=== PATIENT | female | born 1945 | race Caucasian/White ===

== ENCOUNTER 2023-03-06 16:23 | Inpatient (IN) | payer MEDICARE, BC ==
[~2023-03-06] VITALS: Ht 165.1 cm; Wt 89.0 kg
[2023-03-06 17:56] LABS: Alanine Aminotransferase 24 U/L (7-40); Albumin 4.1 g/dL (3.2-4.8); Aspartate Aminotransferase 28 U/L (13-40); Bilirubin, Total 0.3 mg/dL (0.2-1.0); Chloride 98 mmol/L (98-107); Potassium 4.2 mmol/L (3.5-5.1); Sodium 131 mmol/L (136-145); Total Protein 6.6 g/dL (5.7-8.2)
[2023-03-06 17:58] LABS: Anion Gap 9.3 (5-15); Carbon Dioxide 23.7 mmol/L (20-30)
[2023-03-06 18:01] LABS: Basophils # (auto) 0.1 10 ^3/uL (0-0.2); Hemoglobin 11.9 g/dL (12.2-16.2); Lymphocytes # (auto) 1.5 10 ^3/uL (0.4-5.4); Nucleated Red Blood Cells % 0.1 %; White Blood Cell 10.1 10^3/uL (4.4-10.8)
[2023-03-06 18:02] LABS: Basophils % (auto) 0.7 % (0.0-2.0); Eosinophils # (auto) 0.4 10 ^3/uL (0-0.8); Eosinophils % (auto) 4.4 % (0.0-7.0); Hematocrit 36.6 % (36.0-46.0); Lymphocytes % (auto) 14.8 % (10.0-50.0); Mean Corpuscular Hemoglobin 28.3 pg (28.0-32.0); Mean Corpuscular Hgb Conc. 32.5 g/dL (32.0-36.0); Monocytes % (auto) 9.6 % (0.0-12.0); Neutrophils # (auto) 7.1 10 ^3/uL (1.6-8.6); Neutrophils % (auto) 70.5 % (37.0-80.0); Red Blood Cells 4.21 10^6/uL (4.0-5.20); Red Cell Distribution Width 16.8 % (11.8-14.3)
[2023-03-06 18:04] LABS: Alkaline Phosphatase 183 U/L (46-116); Blood Urea Nitrogen 36 mg/dL (9-23); Glucose 168 mg/dL (74-106)
[2023-03-06 19:05] LABS: Urine Bacteria NONE SEEN /hpf (None Seen); Urine Blood Negative /uL (Negative); Urine Clarity Clear (Clear); Urine Color Colorless (Yellow); Urine Hyaline Cast FEW /lpf (0 - 2); Urine Protein, UAD Negative (Negative); Urine Specific Gravity 1.014 (1.001-1.035); Urine Urobilinogen Normal (Negative); Urine WBC 1 /hpf (0 - 5)
[2023-03-06 19:25] VITALS: PULSE 94; RESP 17; O2SAT 96
[2023-03-06] MEDS ORDERED: DexAMETHasone SOD PHOS 10MG/1ML VIAL INJ IV ONE (20:00)
[2023-03-06] MEDS ORDERED: cefTRIAXone 1GM/50ML D5W 50 ML IV ONE (20:00)
[2023-03-06] MEDS ORDERED: AZITHROMYCIN 500MG/ 250ML 250 ML IV ONE (20:00)
[2023-03-06] MEDS ORDERED: ALBUTEROL SULF 2.5 MG/0.5ML(0.5%) NEB SOLN NEB ONE (20:00)
[2023-03-06] MEDS ORDERED: LACTATED RINGER'S 1,000 ML IV ONE (20:00)
[2023-03-06] MEDS ORDERED: NITROGLYCERIN 0.4 MG SL TAB SL PRN (20:30)
[2023-03-06] MEDS ORDERED: MORPHINE SULFATE INJ 2 MG/ml SYRG IV PRN (20:30)
[2023-03-06] MEDS ORDERED: ONDANSETRON HCL 4 MG/2 ML VIAL IV PRN (20:30)
[2023-03-06] MEDS ORDERED: ACETAMINOPHEN 325 MG TAB PO PRN (20:30)
[2023-03-06] MEDS ORDERED: DOCUSATE SOD 100 MG CAP PO PRN (20:30)
[2023-03-06] MEDS ORDERED: RABE1TAB4 PO (20:40)
[2023-03-06] MEDS ORDERED: RAMI10CA38 PO (20:40)
[2023-03-06] MEDS ORDERED: HYDR12.55 PO (20:40)
[2023-03-06] MEDS ORDERED: LEVO100T8 PO (20:40)
[2023-03-06] MEDS ORDERED: DEXTROSE (50%) 50ML SYRG IV PRN (20:45)
[2023-03-06 22:53] VITALS: BP 137/72; PULSE 89; RESP 20; TEMP 98; O2SAT 91
[2023-03-06] MEDS ORDERED: MORPHINE SULFATE 4 MG/ML SYR/VIAL IV ONE (23:00)
[2023-03-06] MEDS ORDERED: ONDANSETRON HCL 4 MG/2 ML VIAL IV ONE (23:00)
[2023-03-06] MEDS: ACCU-CHEK COMFORT CURVE STRIP VI SCH (23:06)
[2023-03-06] MEDS: SODIUM CHLOR 0.9% PF (SALINE LOCK) 10ML VIAL/SYR IV SCH (23:13)
[2023-03-06] MEDS: InsuLIN REG 1unit/0.01ml Soln (100units/ml) SC SCH (23:14)
[2023-03-07] VITALS (15 sets, daily range): BP systolic 112–141; BP diastolic 58–80; PULSE 79–98; RESP 15–20; TEMP 98.2–98.7; O2SAT 92–100
[2023-03-07] MEDS: IPRATROPIUM BROM 0.5 MG/2.5ML INH SOL NEB SCH ×4 (00:39→18:54)
[2023-03-07] MEDS: ALBUTEROL SULF 2.5 MG/0.5ML(0.5%) NEB SOLN NEB SCH ×4 (00:39→18:54)
[2023-03-07] MEDS ORDERED: PRED10TA PO (03:30)
[2023-03-07] MEDS ORDERED: HYDR-4902 PO (03:31)
[2023-03-07 06:22] LABS: Basophils # (auto) 0 10 ^3/uL (0-0.2); Basophils % (auto) 0.1 % (0.0-2.0); Eosinophils # (auto) 0 10 ^3/uL (0-0.8); Lymphocytes # (auto) 0.4 10 ^3/uL (0.4-5.4); Monocytes # (auto) 0.1 10 ^3/uL (0-1.3); Neutrophils % (auto) 93.4 % (37.0-80.0)
[2023-03-07] MEDS: SODIUM CHLOR 0.9% PF (SALINE LOCK) 10ML VIAL/SYR IV SCH ×3 (06:25→22:26)
[2023-03-07] MEDS: LEVOTHYROXINE SODIUM 100 MCG TAB PO SCH (06:25)
[2023-03-07] MEDS: ACCU-CHEK COMFORT CURVE STRIP VI SCH ×4 (06:25→22:26)
[2023-03-07 06:26] LABS: Hematocrit 33.7 % (36.0-46.0); Hemoglobin 11.2 g/dL (12.2-16.2); Lymphocytes % (auto) 5.5 % (10.0-50.0); Mean Corpuscular Hemoglobin 28.7 pg (28.0-32.0); Mean Corpuscular Hgb Conc. 33.1 g/dL (32.0-36.0); Mean Corpuscular Volume 86.8 fL (80.0-100.0); Neutrophils # (auto) 6.8 10 ^3/uL (1.6-8.6); Nucleated Red Blood Cells % 0.1 %; Red Blood Cells 3.88 10^6/uL (4.0-5.20); Red Cell Distribution Width 16.8 % (11.8-14.3); White Blood Cell 7.2 10^3/uL (4.4-10.8)
[2023-03-07] MEDS: InsuLIN REG 1unit/0.01ml Soln (100units/ml) SC SCH ×4 (06:33→22:24)
[2023-03-07 06:34] LABS: Alanine Aminotransferase 16 U/L (7-40); Alkaline Phosphatase 187 U/L (46-116); Anion Gap 9.1 (5-15); Calcium 9.9 mg/dL (8.7-10.4); Carbon Dioxide 26.9 mmol/L (20-30); Chloride 96 mmol/L (98-107); Glucose 273 mg/dL (74-106); Potassium 4.5 mmol/L (3.5-5.1); Sodium 132 mmol/L (136-145)
[2023-03-07 06:36] LABS: Albumin 4.1 g/dL (3.2-4.8); Aspartate Aminotransferase 24 U/L (13-40); Bilirubin, Total 0.3 mg/dL (0.2-1.0); Total Protein 6.8 g/dL (5.7-8.2)
[2023-03-07 07:07] LABS: Blood Urea Nitrogen 24 mg/dL (9-23)
[2023-03-07] MEDS ORDERED: PANTOPRAZOLE 40 MG TAB PO SCH (10:00)
[2023-03-07] MEDS: HCTZ 25 MG TAB PO SCH (10:24)
[2023-03-07] MEDS: LISINOPRIL 20 MG TAB PO SCH (10:24)
[2023-03-07] MEDS: methylPREDNISolone SOD SUCC 40 MG/ML VL IV SCH ×2 (10:24→22:27)
[2023-03-07] MEDS: HYDROcodone-ACET 5/325MG TAB PO PRN ×2 (10:38→20:03)
[2023-03-07] MEDS ORDERED: AZITHROMYCIN 500MG/ 250ML 250 ML IV SCH (22:00)
[2023-03-07] MEDS: cefTRIAXone 1GM/50ML D5W 50 ML IV SCH (22:25)
[2023-03-07] MEDS: MUPIROCIN 2% OINT 15gm or 22gm FOR MRSA NARES EACHNOSTRI SCH (22:28)
[2023-03-08] VITALS (15 sets, daily range): BP systolic 139–152; BP diastolic 73–84; PULSE 72–89; RESP 16–20; TEMP 98–98.5; O2SAT 7–99
[2023-03-08] MEDS: IPRATROPIUM BROM 0.5 MG/2.5ML INH SOL NEB SCH ×4 (00:50→18:16)
[2023-03-08] MEDS: ALBUTEROL SULF 2.5 MG/0.5ML(0.5%) NEB SOLN NEB SCH ×4 (00:50→18:16)
[2023-03-08] MEDS: HYDROcodone-ACET 5/325MG TAB PO PRN ×3 (03:32→18:20)
[2023-03-08] MEDS: ACCU-CHEK COMFORT CURVE STRIP VI SCH ×4 (06:42→23:34)
[2023-03-08] MEDS: InsuLIN REG 1unit/0.01ml Soln (100units/ml) SC SCH ×4 (06:43→23:32)
[2023-03-08] MEDS: LEVOTHYROXINE SODIUM 100 MCG TAB PO SCH (06:43)
[2023-03-08] MEDS: SODIUM CHLOR 0.9% PF (SALINE LOCK) 10ML VIAL/SYR IV SCH ×3 (06:43→23:33)
[2023-03-08] MEDS: methylPREDNISolone SOD SUCC 40 MG/ML VL IV SCH ×2 (09:32→23:33)
[2023-03-08] MEDS: LISINOPRIL 20 MG TAB PO SCH (09:33)
[2023-03-08] MEDS: HCTZ 25 MG TAB PO SCH (09:33)
[2023-03-08] MEDS: ENOXAPARIN SOD 40 MG/0.4 ML SYRINGE SC SCH (09:33)
[2023-03-08] MEDS: MUPIROCIN 2% OINT 15gm or 22gm FOR MRSA NARES EACHNOSTRI SCH ×2 (09:46→23:41)
[2023-03-08] MEDS: cefTRIAXone 1GM/50ML D5W 50 ML IV SCH (23:33)
[2023-03-08] MEDS: AZITHROMYCIN 250 MG TAB PO SCH (23:33)
[2023-03-09] VITALS (17 sets, daily range): BP systolic 136–165; BP diastolic 74–94; PULSE 71–95; RESP 16–20; TEMP 98–98.7; O2SAT 95–100
[2023-03-09] MEDS: IPRATROPIUM BROM 0.5 MG/2.5ML INH SOL NEB SCH ×5 (00:40→23:45)
[2023-03-09] MEDS: ALBUTEROL SULF 2.5 MG/0.5ML(0.5%) NEB SOLN NEB SCH ×5 (00:40→23:45)
[2023-03-09] MEDS: HYDROcodone-ACET 5/325MG TAB PO PRN ×3 (01:39→14:25)
[2023-03-09] MEDS: ACCU-CHEK COMFORT CURVE STRIP VI SCH ×4 (06:47→21:08)
[2023-03-09] MEDS: InsuLIN REG 1unit/0.01ml Soln (100units/ml) SC SCH ×4 (06:47→21:24)
[2023-03-09] MEDS: LEVOTHYROXINE SODIUM 100 MCG TAB PO SCH (06:48)
[2023-03-09] MEDS: SODIUM CHLOR 0.9% PF (SALINE LOCK) 10ML VIAL/SYR IV SCH ×3 (06:48→21:30)
[2023-03-09] MEDS: methylPREDNISolone SOD SUCC 40 MG/ML VL IV SCH ×2 (09:16→21:07)
[2023-03-09] MEDS: LISINOPRIL 20 MG TAB PO SCH (09:17)
[2023-03-09] MEDS: HCTZ 25 MG TAB PO SCH (09:18)
[2023-03-09] MEDS: ENOXAPARIN SOD 40 MG/0.4 ML SYRINGE SC SCH (09:18)
[2023-03-09] MEDS: MUPIROCIN 2% OINT 15gm or 22gm FOR MRSA NARES EACHNOSTRI SCH ×2 (09:19→21:29)
[2023-03-09] MEDS: AZITHROMYCIN 250 MG TAB PO SCH (21:03)
[2023-03-09] MEDS: cefTRIAXone 1GM/50ML D5W 50 ML IV SCH (21:04)
[2023-03-10] VITALS (15 sets, daily range): BP systolic 134–165; BP diastolic 75–98; PULSE 74–89; RESP 16–20; TEMP 98.2–98.8; O2SAT 92–100
[2023-03-10] MEDS: ACCU-CHEK COMFORT CURVE STRIP VI SCH ×4 (06:13→21:40)
[2023-03-10] MEDS: InsuLIN REG 1unit/0.01ml Soln (100units/ml) SC SCH ×4 (06:14→21:41)
[2023-03-10] MEDS: LEVOTHYROXINE SODIUM 100 MCG TAB PO SCH ×2 (06:17→08:53)
[2023-03-10] MEDS: SODIUM CHLOR 0.9% PF (SALINE LOCK) 10ML VIAL/SYR IV SCH ×3 (06:19→21:40)
[2023-03-10] MEDS: ALBUTEROL SULF 2.5 MG/0.5ML(0.5%) NEB SOLN NEB SCH ×3 (06:43→19:39)
[2023-03-10] MEDS: IPRATROPIUM BROM 0.5 MG/2.5ML INH SOL NEB SCH ×3 (06:43→19:39)
[2023-03-10] MEDS: methylPREDNISolone SOD SUCC 40 MG/ML VL IV SCH ×2 (08:52→21:39)
[2023-03-10] MEDS: LISINOPRIL 20 MG TAB PO SCH (08:53)
[2023-03-10] MEDS: HCTZ 25 MG TAB PO SCH (08:54)
[2023-03-10] MEDS: HYDROcodone-ACET 5/325MG TAB PO PRN (08:55)
[2023-03-10] MEDS: ENOXAPARIN SOD 40 MG/0.4 ML SYRINGE SC SCH (08:56)
[2023-03-10] MEDS: MUPIROCIN 2% OINT 15gm or 22gm FOR MRSA NARES EACHNOSTRI SCH ×2 (08:56→21:40)
[2023-03-10] MEDS: HYDROcodone-ACET 10/325MG TAB PO PRN ×3 (13:06→22:36)
[2023-03-10] MEDS ORDERED: cloNIDine HCL 0.1 MG TAB PO PRN (13:15)
[2023-03-10] MEDS: cefTRIAXone 1GM/50ML D5W 50 ML IV SCH (21:12)
[2023-03-10] MEDS: AZITHROMYCIN 250 MG TAB PO SCH (21:12)
[2023-03-11] VITALS (18 sets, daily range): BP systolic 132–167; BP diastolic 79–96; PULSE 75–88; RESP 16–20; TEMP 97.2–98; O2SAT 95–100
[2023-03-11] MEDS: ALBUTEROL SULF 2.5 MG/0.5ML(0.5%) NEB SOLN NEB SCH ×4 (02:11→18:49)
[2023-03-11] MEDS: IPRATROPIUM BROM 0.5 MG/2.5ML INH SOL NEB SCH ×4 (02:11→18:50)
[2023-03-11] MEDS: HYDROcodone-ACET 5/325MG TAB PO PRN (02:25)
[2023-03-11] MEDS: InsuLIN REG 1unit/0.01ml Soln (100units/ml) SC SCH ×4 (06:14→21:49)
[2023-03-11] MEDS: ACCU-CHEK COMFORT CURVE STRIP VI SCH ×4 (06:14→21:33)
[2023-03-11] MEDS: SODIUM CHLOR 0.9% PF (SALINE LOCK) 10ML VIAL/SYR IV SCH ×3 (06:16→21:33)
[2023-03-11] MEDS: LEVOTHYROXINE SODIUM 100 MCG TAB PO SCH (07:08)
[2023-03-11] MEDS: MUPIROCIN 2% OINT 15gm or 22gm FOR MRSA NARES EACHNOSTRI SCH ×2 (10:00→21:38)
[2023-03-11] MEDS: HYDROcodone-ACET 10/325MG TAB PO PRN ×3 (11:14→21:45)
[2023-03-11] MEDS: LISINOPRIL 20 MG TAB PO SCH (11:14)
[2023-03-11] MEDS: ENOXAPARIN SOD 40 MG/0.4 ML SYRINGE SC SCH (11:15)
[2023-03-11] MEDS: methylPREDNISolone SOD SUCC 40 MG/ML VL IV SCH ×2 (11:15→21:33)
[2023-03-11] MEDS: HCTZ 25 MG TAB PO SCH (11:15)
[2023-03-11] MEDS: DOXYCYCLINE 100MG/250ML 250 ML IV SCH ×2 (11:46→23:40)
[2023-03-11] MEDS ORDERED: LACTULOSE 20Gm/30ML SOLN PO ONE (15:15)
[2023-03-11] MEDS: cefTRIAXone 1GM/50ML D5W 50 ML IV SCH (20:41)
[2023-03-12] VITALS (10 sets, daily range): BP systolic 123–146; BP diastolic 69–88; PULSE 71–83; RESP 18–20; TEMP 97.6–98.2; O2SAT 91–96
[2023-03-12] MEDS ORDERED: ALBUTEROL SULF 2.5 MG/0.5ML(0.5%) NEB SOLN NEB PRN
[2023-03-12] MEDS ORDERED: IPRATROPIUM BROM 0.5 MG/2.5ML INH SOL NEB PRN
[2023-03-12] MEDS: HYDROcodone-ACET 10/325MG TAB PO PRN ×4 (02:48→22:02)
[2023-03-12] MEDS: SODIUM CHLOR 0.9% PF (SALINE LOCK) 10ML VIAL/SYR IV SCH ×3 (06:20→22:00)
[2023-03-12] MEDS: LEVOTHYROXINE SODIUM 100 MCG TAB PO SCH (06:20)
[2023-03-12] MEDS: ACCU-CHEK COMFORT CURVE STRIP VI SCH ×4 (06:21→22:03)
[2023-03-12] MEDS: InsuLIN REG 1unit/0.01ml Soln (100units/ml) SC SCH ×4 (06:24→22:10)
[2023-03-12] MEDS: methylPREDNISolone SOD SUCC 40 MG/ML VL IV SCH ×2 (10:10→21:59)
[2023-03-12] MEDS: LISINOPRIL 20 MG TAB PO SCH (10:10)
[2023-03-12] MEDS: HCTZ 25 MG TAB PO SCH (10:10)
[2023-03-12] MEDS: ENOXAPARIN SOD 40 MG/0.4 ML SYRINGE SC SCH (10:11)
[2023-03-12] MEDS: MUPIROCIN 2% OINT 15gm or 22gm FOR MRSA NARES EACHNOSTRI SCH (10:12)
[2023-03-12] MEDS: DOXYCYCLINE 100MG/250ML 250 ML IV SCH (12:20)
[2023-03-12] MEDS: cefTRIAXone 1GM/50ML D5W 50 ML IV SCH (21:55)
[2023-03-13] VITALS (15 sets, daily range): BP systolic 118–150; BP diastolic 67–88; PULSE 69–86; RESP 17–20; TEMP 97.6–98.7; O2SAT 92–100
[2023-03-13] MEDS: DOXYCYCLINE 100MG/250ML 250 ML IV SCH ×3 (00:18→23:35)
[2023-03-13] MEDS: SODIUM CHLOR 0.9% PF (SALINE LOCK) 10ML VIAL/SYR IV SCH ×3 (06:03→21:23)
[2023-03-13] MEDS: ACCU-CHEK COMFORT CURVE STRIP VI SCH ×4 (06:04→21:24)
[2023-03-13] MEDS: LEVOTHYROXINE SODIUM 100 MCG TAB PO SCH (06:04)
[2023-03-13] MEDS: InsuLIN REG 1unit/0.01ml Soln (100units/ml) SC SCH ×4 (06:08→21:25)
[2023-03-13] MEDS: ENOXAPARIN SOD 40 MG/0.4 ML SYRINGE SC SCH (09:26)
[2023-03-13] MEDS: LISINOPRIL 20 MG TAB PO SCH (09:27)
[2023-03-13] MEDS: methylPREDNISolone SOD SUCC 40 MG/ML VL IV SCH ×2 (09:27→21:23)
[2023-03-13] MEDS: HCTZ 25 MG TAB PO SCH (09:27)
[2023-03-13] MEDS: HYDROcodone-ACET 10/325MG TAB PO PRN ×2 (09:30→20:07)
[2023-03-13] MEDS: IPRATROPIUM BROM 0.5 MG/2.5ML INH SOL NEB SCH ×2 (14:31→22:24)
[2023-03-13] MEDS: ALBUTEROL SULF 2.5 MG/0.5ML(0.5%) NEB SOLN NEB SCH ×2 (14:31→22:24)
[2023-03-13] MEDS: ACETYLCYSTEINE 20%(200MG/ML) SOL 4ML NEB SCH ×2 (14:32→22:24)
[2023-03-13] MEDS: cefTRIAXone 1GM/50ML D5W 50 ML IV SCH (20:07)
[2023-03-14] VITALS (10 sets, daily range): BP systolic 124–140; BP diastolic 64–75; PULSE 70–89; RESP 18–20; TEMP 36.6; O2SAT 92–97
[2023-03-14] MEDS: HYDROcodone-ACET 10/325MG TAB PO PRN ×2 (04:13→09:10)
[2023-03-14] MEDS: SODIUM CHLOR 0.9% PF (SALINE LOCK) 10ML VIAL/SYR IV SCH ×2 (06:19→15:12)
[2023-03-14] MEDS: ACCU-CHEK COMFORT CURVE STRIP VI SCH ×3 (06:19→17:00)
[2023-03-14] MEDS: LEVOTHYROXINE SODIUM 100 MCG TAB PO SCH (06:19)
[2023-03-14] MEDS: InsuLIN REG 1unit/0.01ml Soln (100units/ml) SC SCH ×3 (06:24→17:00)
[2023-03-14] MEDS: ACETYLCYSTEINE 20%(200MG/ML) SOL 4ML NEB SCH ×2 (06:59→14:22)
[2023-03-14] MEDS: IPRATROPIUM BROM 0.5 MG/2.5ML INH SOL NEB SCH ×2 (06:59→14:21)
[2023-03-14] MEDS: ALBUTEROL SULF 2.5 MG/0.5ML(0.5%) NEB SOLN NEB SCH ×2 (06:59→14:22)
[2023-03-14] MEDS: ENOXAPARIN SOD 40 MG/0.4 ML SYRINGE SC SCH (10:12)
[2023-03-14] MEDS: methylPREDNISolone SOD SUCC 40 MG/ML VL IV SCH (10:12)
[2023-03-14] MEDS: LISINOPRIL 20 MG TAB PO SCH (10:13)
[2023-03-14] MEDS: HCTZ 25 MG TAB PO SCH (10:13)
[2023-03-14 11:29] LABS: COVID19 ANTIGEN SOFIA FIA NEGATIVE (NEGATIVE)
[2023-03-14] MEDS: DOXYCYCLINE 100MG/250ML 250 ML IV SCH (11:30)
[2023-03-14] MEDS ORDERED: DOXYCYCLINE 100 MG TAB/CAP PO SCH (22:00)
== END 2023-03-14 17:29 | DRG 177 ==
LOC: ER 16:23 → EDBD 16:23 → TELE 20:40 → TELE-WESTW 03-07 02:38
PROVIDERS: ADMIT Nurse Practitioner Family; ATTEND Family Medicine
PROC: 0HBT3ZX Excision of Right Breast, Percutaneous Approach, Diagnostic (ICD-10-PCS; principal; 2023-03-10)
PROC: 05H933Z Insertion of Infusion Device into Right Brachial Vein, Percutaneous Approach (ICD-10-PCS; 2023-03-14)
PROC: B54MZZA Ultrasonography of Right Upper Extremity Veins, Guidance (ICD-10-PCS; 2023-03-14)
DX: J15.6 Pneumonia due to other Gram-negative bacteria (principal); J96.01 Acute respiratory failure with hypoxia; E87.1 Hypo-osmolality and hyponatremia; C79.51 Secondary malignant neoplasm of bone; C78.01 Secondary malignant neoplasm of right lung; C78.02 Secondary malignant neoplasm of left lung; J15.9 Unspecified bacterial pneumonia; I10 Essential (primary) hypertension; E78.5 Hyperlipidemia, unspecified; E11.65 Type 2 diabetes mellitus with hyperglycemia; E03.9 Hypothyroidism, unspecified; E86.0 Dehydration; Z20.822 Contact with and (suspected) exposure to COVID-19; E27.8 Other specified disorders of adrenal gland; N63.10 Unspecified lump in the right breast, unspecified quadrant; C50.919 Malignant neoplasm of unspecified site of unspecified female breast; E78.00 Pure hypercholesterolemia, unspecified; M19.90 Unspecified osteoarthritis, unspecified site; E66.9 Obesity, unspecified; E11.42 Type 2 diabetes mellitus with diabetic polyneuropathy; Z85.3 Personal history of malignant neoplasm of breast; Z88.0 Allergy status to penicillin; Z79.84 Long term (current) use of oral hypoglycemic drugs; Z79.899 Other long term (current) drug therapy; Z90.711 Acquired absence of uterus with remaining cervical stump; Z83.3 Family history of diabetes mellitus; Z82.49 Family history of ischemic heart disease and other diseases of the circulatory system; Z80.8 Family history of malignant neoplasm of other organs or systems; Z79.4 Long term (current) use of insulin; Z85.118 Personal history of other malignant neoplasm of bronchus and lung; Z68.32 Body mass index [BMI] 32.0-32.9, adult
CPT/HCPCS: 36415; 71045; 71250; 76642; 76881; 76942; 80053; 81001; 82962; 83036; 83615; 83880; 84484; 85025; 86300; 87081; 87426; 94640; 96365; 96366; 96375; 97110; 97116; 97163; 97530; G0378; J0696; J1100; J1815; J2405; J3490